=== PATIENT | male | born 1955 | race Caucasian/White ===

== ENCOUNTER 2017-06-18 06:16 | Day surgery (SDC) | payer BC ==
--- NOTE | 2017-06-05 17:30 | HP ---
CC: Dr. Bhakta * ADMISSION HISTORY AND PHYSICAL: DATE OF SURGERY: 06/18/17 PATIENT OF: Carroll Marinelli MD ATTENDING SURGEON: Carroll Marinelli MD * (DICTATED BY MARLENE LUNA) PRIMARY CARE PHYSICIAN: Ramiro Bhakta MD CHIEF COMPLAINT: Right abdominal hernia. HISTORY OF PRESENT ILLNESS: Mr. Rodriguez is a pleasant 62-year-old female who has been followed up in our office back from June 2016 due to abdominal hernia. The patient was seen by Dr. Marinelli back then and he was diagnosed with possible abdominal hernia on exam. He complained back then of a bulge in the right groin area as well as intermittent pain related to that bulge, but denied any nausea, vomiting, or changes in bowel habits. The patient was seen in the office and evaluated for hernia and he was offered proceeding with a diagnostic laparoscopy with possible hernia repair back then. The patient noted that he felt better over time and he elected not to proceed with surgery back then. He notes intermittent episodes of right lower quadrant discomfort on and off as well as increase in the size of the hernia bulge. He is still able to reduce the hernia on occasion. He denies any changes in bowel habits or associated nausea and vomiting. He was seen again by Dr. Marinelli earlier this week and discussed with him proceeding with surgery given his ongoing symptoms as well as the fact that his insurance will by the end of June and he would like to take care of his surgery prior to change to a high deductible coverage. The patient again reports no changes in the hernia since his last office visit. He was seen by his primary care physician a few times in the last couple of months and he discussed with him his intention to proceed with hernia repair. He also expressed a new onset of tinnitus that has been evaluated with multiple workups including MRI of the brain, cervical spine as well as carotid Doppler, but all workup came back negative. Regarding his hernia, again he denies any new complaints and he is here today in the office to discuss a surgical repair. PAST MEDICAL HISTORY: Significant for peripheral vascular disease, hypertension , seasonal allergies, hyperlipidemia, atherosclerotic vascular disease, asthma as well as obsessive compulsive and panic disorder. He also has a history of hypothyroidism. PAST SURGICAL HISTORY: Significant for left inguinal hernia repair back in as well as recent abdominal angioplasty with stent placement approximately a year ago at [facility]. HOME MEDICATIONS: His medications include: 1. KCl 10 mEq 1 tablet daily. 2. Multivitamin for adults 1 tablet daily. 3. Lisinopril 10 mg 1 by mouth daily. 4. ProAir HFA 108 mcg per puff, 2 puffs by mouth every 6 hours as needed for shortness of breath. 5. Lipitor 80 mg 1 tablet q.h.s. 6. Clonazepam 1 mg p.o. daily. 7. Lexapro 20 mg p.o. daily. 8. Ambien 10 mg p.o. q.h.s. p.r.n. for insomnia. 9. Tamsulosin 0.4 mg 1 tablet daily. 10. Niacin 1 tablet daily. 11. Synthroid 100 mcg 1 tablet daily. ALLERGIES: He reports sensitivity to POLLEN, RAGWEED, and CAT DANDER but denies any known drug allergies. FAMILY HISTORY: Noncontributory. SOCIAL HISTORY: The patient is a nonsmoker who drinks alcohol occasionally and caffeine intake is minimal. REVIEW OF SYSTEMS: See HPI, otherwise negative. He denies any headache, dizziness, blurred vision, but admits to occasional tinnitus, usually worse at night. He denies any chest pain, shortness of breath, wheezing, or difficulty breathing. Denies any back pain, flank pain, dysuria, hematuria, or urinary frequency. He admits to right abdominal hernia with occasional bulge that he is able to reduce, but denies any nausea, vomiting, or changes in the bowel habits. No fever, chills, night sweats, or recent weight loss. PHYSICAL EXAMINATION GENERAL: He is a pleasant, healthy appearing, upper middle age gentleman, appears comfortable and in no acute distress or discomfort at the time of admission. VITAL SIGNS: His vitals today revealed blood pressure of 140/86, pulse of 64, respirations of 16, temperature of 97.4, and O2 sat of 100%. He weighs 135 pounds, and he is 5 feet 8-1/2 inches with BMI of 20.2. HEENT: Sclerae anicteric. PERRLA. EOMs intact. Oropharynx is pink and moist with no exudate. NECK: Supple. Trachea midline. No cervical adenopathy, thyromegaly, or JVD. LUNGS: Clear to auscultation bilaterally. HEART: Regular rate and rhythm. Normal S1 and S2 without rubs, murmurs, or gallops. BACK: Normal curvature. No CVA tenderness. ABDOMEN: Soft, nontender, and nondistended. A small ventral hernia was noted with the patient in standing position that measures approximately 1 to 2 cm, about 3 cm above the mid inguinal ligament along the semilunar line. The inguinal canal itself was examined and it revealed no evidence of inguinal hernia. There is also a small umbilical hernia noted measuring probably less than 1 cm in diameter with some incarcerated periumbilical fat noted. No other hernias, masses, or hepatosplenomegaly noted. The patient was examined again on the supine position revealing a small ventral hernia defect, most likely a spigelian-type hernia that was nontender on palpation. EXTREMITIES: Without cyanosis, clubbing, or edema. RECTAL: Deferred at this time. NEUROLOGIC: Grossly intact. IMPRESSION: A 62-year-old gentleman with a ventral most likely a spigelian- type hernia on the right side of the abdomen as well as a small umbilical hernia. PLAN: The patient is scheduled for a laparoscopic ventral hernia repair with mesh as well as an open umbilical hernia repair by Dr. Marinelli to be performed on 06/18/17. The rationale, indications, risks, and benefits of surgery were discussed with him today. Risks include but not limited to infection, bleeding , or injury to adjacent structures. The patient seems to understand and wishes to proceed as outlined. We will plan to follow him up accordingly, probably 1 week after the surgery. MARLENE LUNA [id number]/[facility] #: [id number] [facility] CENTERCathy
[~2017-06-18 06:16] MED LIST: Buffered Lidocaine 0.9% SYRIN* 5 ML/SYR SYRINGE INTRADERM ONE
[2017-06-18] MEDS ORDERED: ceFAZolin 2 GM PREMIX (*) 50 ML IVPB ONE (06:31)
[2017-06-18] MEDS ORDERED: Buffered Lidocaine 0.9% SYRIN* 5 ML/SYR SYRINGE ONE (06:31)
[2017-06-18] MEDS ORDERED: Bupivacaine 0.25% SDV* 30 ML ONE (07:20)
[2017-06-18] MEDS ORDERED: Lidocaine 1% MPF wEPI 200,000* 30 ML SDV ONE (07:20)
[2017-06-18] MEDS ORDERED: Midazolam* 1 MG/ML 2 ML VIAL (2 MG) ONE (07:47)
[2017-06-18] MEDS ORDERED: fentaNYL* 50 MCG/ML 2 ML VIAL (100 MCG VIAL) ONE (07:47)
[2017-06-18] MEDS ORDERED: Propofol* 10 MG/ML 20 ML BTL IV PUSH ONE (08:15)
[2017-06-18] MEDS ORDERED: Succinylcholine* 20 MG/ML 10 ML VIAL ONE (08:15)
[2017-06-18] MEDS ORDERED: Lidocaine 2% PF * 5 ML VIAL ONE (08:15)
[2017-06-18] MEDS ORDERED: Ondansetron INJ* 2 MG/ML VIAL ONE (08:15)
[2017-06-18] MEDS ORDERED: Dexamethasone IV* 4 MG/ML 1 ML (4 MG) ONE (08:15)
[2017-06-18] MEDS ORDERED: Glycopyrrolate IV* 0.2 MG/ML 1 ML VIAL ONE ×2 (08:43→08:48)
[2017-06-18] MEDS ORDERED: EPHEDrine (Pressors)* 50 MG/ML VIAL ONE (08:43)
--- NOTE | 2017-06-18 09:45 | SURGPN ---
Brief Operative Note - Surgery Procedures: Procedures Pre-OP Diagnoses: Ventral inguinal hernia, umbilical hernia Post-op Diagnosis: Spigelian hernia, umbilical hernia Procedure: Diagnostic laparoscopy, extraperitoneal repair of spigelian hernia with mesh, primary repair of umbilical hernia Surgeon: Isis Lawsont: Ifrah Chengtheaurelio: DINORAH EBL: minimal IVF: minimal Specimen: none Drains: none
[2017-06-18] MEDS ORDERED: fentaNYL* 50 MCG/ML 2 ML VIAL (100 MCG VIAL) IV PRN (09:49)
[2017-06-18] MEDS ORDERED: PROCHLORPERAZINE INJ 5 MG/ML 2 ML VIAL IV PRN (09:49)
[2017-06-18] MEDS ORDERED: HYDROmorphone INJ* 1 MG/ML CARPUJECT SYRINGE IV PRN (09:49)
[2017-06-18] MEDS ORDERED: Metoclopramide IV* 5 MG/ML 2 ML VIAL IV PRN (09:49)
[2017-06-18] MEDS ORDERED: Acetaminophen TAB* 325 MG PO PRN (09:49)
[2017-06-18] MEDS ORDERED: Ketorolac INJ* 30 MG/ML 1 ML VIAL IV PRN (09:49)
[2017-06-18] MEDS ORDERED: oxyCODONE/Acetamin 5/325 MG* TAB PO PRN (09:54)
[2017-06-18 10:49] VITALS: BP 123/72
--- NOTE | 2017-06-18 17:46 | OP ---
CC: Dr. Bhakta, [facility] OPERATIVE REPORT: DATE OF OPERATION: 06/18/17 - SDS DATE OF : 53 SURGEON: Carroll Marinelli MD. CHICK[employer] CLEANER: MARLENE Peraza. ANESTHESIOLOGIST: Dr. Shelton. ANESTHESIA: General anesthesia. PRE-OP DIAGNOSIS: Ventral hernia and umbilical hernia. POST-OP DIAGNOSIS: Spigelian hernia and umbilical hernia. OPERATIVE PROCEDURE: Diagnostic laparoscopy, extraperitoneal repair, Spigelian hernia with mesh and primary repair of umbilical hernia. ESTIMATED BLOOD LOSS: Minimal. FLUIDS: Minimal crystalloid fluid given. SPECIMEN: None. DRAINS: None. DESCRIPTION OF PROCEDURE: The patient was identified in the preoperative area, shaved, marked and consent signed. Case was discussed with him again. He was taken back to the operating room and placed on the operating table in supine position. Preoperative antibiotics were given. Sequential devices were placed in bilateral lower extremities. General anesthesia was induced. The patient's abdomen was prepped and draped in a standard surgical fashion. A time-out was performed. An infraumbilical incision was made. This was deepened down to the anterior fascia inferiorly and we isolated the umbilical hernia by dissecting sharply the umbilical skin. The hernia appeared to be approximately 6 mm. The hernia sac with contents was dissected away towards the right side and entry into the abdominal cavity was made. At this point, the patient did go bradycardic. We held off procedure while anesthesia attended the patient. Please see their reports for details. We then put a 12 mm trocar into the abdomen and placed the laparoscope through this. There was no evidence of injury from the trocar insertion. Review of the abdomen suggested a ventral hernia quite inferior and laterally towards the area of the groin. It appeared to be Spigelian, but I was unsure and made the decision to convert to a total extraperitoneal repair of the hernia. The laparoscope was removed. Abdomen was allowed to collapse. The hernia sac and contents were fully dissected off the peritoneum and passed off. We did not sent this as specimen. The peritoneal layer was reapproximated with 2-0 Polysorb suture. We dissected lateral along our incision taking the fascia off the left rectus muscle. This rectus pillar was then retraced laterally and blunt dissection was then carried out to open up the preperitoneal plane. The trocar was inserted and the preperitoneal plane was allowed to insufflate to a pressure of 12 mmHg. The patient tolerated the insufflation well. Camera was inserted and additional trocars were then placed in the following positions, two 5 mm along the lower midline. Blunt dissection was carried out to free up the space identifying the pubic symphysis as well as Jignesh's ligament on the right. Bogros space was opened laterally and this gave us our opportunity to see defect in the anterior abdominal wall which appeared to be lateral to the spermatic cord and indirect space. I did not appreciate this as an indirect hernia. Review of the direct space showed no evidence of defect. Next, the peritoneum laterally was identified. This was bluntly dissected posteriorly to make a space for a mesh. Decision was made to use a right-sided 3DMax inguinal mesh as it would cover the defect on this gentleman given his body habitus. Hemostasis was achieved and we identified no indirect hernia after minimally skeletonizing the spermatic cord. Next, the 3DMax mesh was inserted, allowed to unfurl. It was tacked laterally with Securestrap and also at Jignesh's ligament. This covered the full myopectineal orifice, but more importantly covered this area lateral to the indirect space. The preperitoneal plane was allowed to collapse. Trocars were removed under direct vision and the umbilical hernia site was reapproximated with interrupted 0 Surgipro sutures. We irrigated. Hemostasis was achieved. The umbilical skin was tacked down with 2-0 Vicryl suture and all 3 skin incisions were reapproximated with 4-0 Monocryl subcuticular sutures followed by sterile dressing. The patient tolerated procedure well, was woken up in the OR and transferred to the PACU in stable condition. [id number]/[facility] #: [id number] [place]
== END 2017-06-18 11:28 | disposition home or self-care (01) ==
LOC: OR 06:16
PROVIDERS: ATTEND Surgery
DX: K43.9 Ventral hernia without obstruction or gangrene (principal); K42.9 Umbilical hernia without obstruction or gangrene; I10 Essential (primary) hypertension; E78.5 Hyperlipidemia, unspecified; J45.909 Unspecified asthma, uncomplicated; I73.9 Peripheral vascular disease, unspecified; E03.9 Hypothyroidism, unspecified; F41.0 Panic disorder [episodic paroxysmal anxiety]; F42.9 Obsessive-compulsive disorder, unspecified; N40.0 Benign prostatic hyperplasia without lower urinary tract symptoms
CPT/HCPCS: C1776; C1781; J0330; J0690; J1100; J2001; J2250; J2405; J2704; J3010

== ENCOUNTER 2018-07-31 13:40 | Emergency (ER) | payer BC ==
[2018-07-31 14:13] VITALS: BP 139/89
--- NOTE | 2018-07-31 16:00 | UC ---
Bite Injury/Animal HPI - HPI Summary HPI Summary: 63 y/o male presents to the urgent care c/o pt was bit on his right hand last night by his own cat. The cat is up to date with vaccines. pt states he is unsure of his last tetanus vaccine. the site is red and swollen. Pt states he is sleepy and shivery. pt states he has been afebrile. - History of Current Complaint Chief Complaint: UCBiteInjury Stated Complaint: CAT BITE Time Seen by Provider: 07/31/18 15:57 Pain Intensity: 4 - Allergies/Home Medications Allergies/Adverse Reactions: Allergies Allergy/AdvReac Type Severity Reaction Status Date / Time seasonal Allergy Intermediate Eyes Uncoded 07/31/18 14:13 Itchy/Swollen/Red/Watery PMH/Surg Hx/FS Hx/Imm Hx - Surgical History Surgical History: Yes Surgery Procedure, Year, and Place: hernia repair 1976 lower left quadrant. STENT - LT COMMON ILIAC ARTERY. DOUBLE HERNIA 05/2017-[facility] - Social History Alcohol Use: Daily Alcohol Amount: 2 GLASSES QD Substance Use Type: Prescribed, Sedatives Substance Use Comment - Amount & Last Used: SLEEP Smoking Status (MU): Never Smoked Tobacco - Immunization History Most Recent Tetanus Shot: unsure Physical Exam Vital Signs: Initial Vital Signs Temp 98.6 F 07/31/18 14:08 Pulse 65 07/31/18 14:08 Resp 18 07/31/18 14:08 BP 139/89 07/31/18 14:08 Pulse Ox 97 07/31/18 14:08 Bite Injury Course/Dx - Differential Dx/Diagnosis Provider Diagnoses: 1- Left hand puncture wound s/p Cat Bite. 2- Left hand cellulitis s/p cat bite Discharge - Sign-Out/Discharge Documenting (check all that apply): Patient Departure - D/c home All imaging exams completed and their final reports reviewed: No Studies - Discharge Plan Condition: Stable Disposition: HOME Patient Education Materials: Animal Bite (ED), Cellulitis (ED) Referrals: Ramiro Bhakta MD [Primary Care Provider] - 2 Days Additional Instructions: 1-Please take full course of Antibiotic. first dose given today at the clinic. 2- If redness and swelling doubles in size after 48 hrs of taking antibiotic and fever develops please go to the ER immediately for further management 3-Avoid flexing your thumb keep and keep wound clean and dry. 4-Please F/u with your PCP in 2-3 days to check if symptoms are improving. further evaluation and treatment. 5- You were given Tetanus vaccine today. The health department will be notified of your cat bite. Since your CAt was up to date w/ Rabies you don't need prophylaxis - Billing Disposition and Condition Condition: STABLE Disposition: Home
[2018-07-31] MEDS ORDERED: Tetan/Diph/Pertus SYR(Tdap)* 0.5 ML SYR(BOOSTRIX) use SYR IM ONE (16:09)
[2018-07-31] MEDS ORDERED: Amoxicillin/Clavulanate TAB* 875 MG PO ONE (16:10)
== END 2018-07-31 16:37 | disposition home or self-care (01) ==
LOC: UCEAST 13:40
DX: S60.922A Unspecified superficial injury of left hand, initial encounter (principal); L03.114 Cellulitis of left upper limb; Z91.048 Other nonmedicinal substance allergy status; W55.01XA Bitten by cat, initial encounter; Y92.9 Unspecified place or not applicable
CPT/HCPCS: 90471; 90715; 99212; A9270-GY; G0463